=== PATIENT | female | born 1980 | race Hispanic/Latino ===

== ENCOUNTER 2020-12-10 12:13 | Emergency (ER) | payer BC ==
[~2020-12-10] VITALS: Ht 170.2 cm; Wt 77.1 kg
== END 2020-12-10 13:18 | disposition home or self-care (01) ==
LOC: FSED 12:25
DX: S93.401A Sprain of unspecified ligament of right ankle, initial encounter (principal); X58.XXXA Exposure to other specified factors, initial encounter
CPT/HCPCS: 99283